=== PATIENT | female | born 1990 | race Hispanic/Latino ===

== ENCOUNTER 2018-11-15 13:46 | Emergency (ER) | payer OTHER ==
[~2018-11-15 13:46] MED LIST: CIPR-278 PO
[2018-11-15 14:30] LABS: BASOPHILS % (AUTO) 0.5 % (0.0-5.0); EOSINOPHILS % (AUTO) 1.3 % (0.0-8.0); HEMATOCRIT 38.3 % (36-48); MEAN CORPUSCULAR HEMOGLOBIN 29.6 pg (27.0-33.0); MEAN CORPUSCULAR HGB CONC 34.1 g/dL (32.0-36.0); MEAN CORPUSCULAR VOLUME 86.8 fL (79-99); NEUTROPHILS % (AUTO) 80.2 % (40.0-77.0); PLATELET COUNT (AUTO) 312 K/uL (130-400); RED BLOOD CELL COUNT(AUTO) 4.41 MIL/uL (4.00-5.50); RED CELL DISTRIBUTION WIDTH 13.4 % (11.0-15.5); WHITE BLOOD COUNT (AUTO) 10.6 K/uL (4.8-10.8)
[2018-11-15 14:31] LABS: APPEARANCE,URINE Cloudy (CLEAR); BILIRUBIN,URINE Negative (NEGATIVE); COLOR,URINE Yellow (YELLOW); GLUCOSE, URINE (UA) Negative (NEGATIVE); KETONES,URINE Negative (NEGATIVE); LEUKOCYTE ESTERASE ,URINE Moderate (NEGATIVE); NITRATE,URINE Positive (NEGATIVE); OCCULT BLOOD,URINE Trace (NEGATIVE); PROTEIN,URINE Negative (NEGATIVE); UROBILINOGEN,URINE 0.2 mg/dL (0.2-1.0)
[2018-11-15 14:34] LABS: HCG,QUAL RESULT NEGATIVE (NEGATIVE)
[2018-11-15] MEDS ORDERED: KETOROLAC TROMETHAMINE 30MG/ML ONE (14:34)
[2018-11-15] MEDS ORDERED: ONDANSETRON HCL 4 MG/2 ML VIAL ONE (14:34)
[2018-11-15] MEDS ORDERED: SODIUM CHLORIDE 0.9% 1000ML 1,000 ML IV ONE (14:35)
[2018-11-15 14:39] LABS: AMPHET/METH SCREEN,URINE NEGATIVE (NEGATIVE); BARBITURATE SCREEN, URINE NEGATIVE (NEGATIVE); BENZODIAZEPINES SCREEN,URINE NEGATIVE (NEGATIVE); CANNABINOID SCREEN,URINE NEGATIVE (NEGATIVE); COCAINE SCREEN,URINE NEGATIVE (NEGATIVE); OPIATE SCREEN,URINE NEGATIVE (NEGATIVE); PHENCYCLIDINE SCREEN,URINE NEGATIVE (NEGATIVE)
[2018-11-15 14:43] LABS: CREATININE 0.9 mg/dL (0.5-1.5); POTASSIUM 3.7 mmol/L (3.5-5.1)
[2018-11-15 14:47] LABS: ALBUMIN 3.8 g/dL (3.5-5.0); BILIRUBIN,DIRECT 0.2 mg/dL (0.0-0.3); BILIRUBIN,TOTAL 0.3 mg/dL (0.2-1.0); TOTAL PROTEIN, SERUM 8.4 g/dL (6.0-8.3)
[2018-11-15 15:01] LABS: BACTERIA,URINE Moderate /HPF (None Seen); MUCUS,URINE Few LPF (None Seen)
== END 2018-11-15 16:03 | disposition home or self-care (01) ==
LOC: EDH 13:46
DX: K29.00 Acute gastritis without bleeding (principal); Z98.51 Tubal ligation status; Z98.890 Other specified postprocedural states
CPT/HCPCS: 36415; 76705; 80048; 80076; 80305; 81001; 81025; 83690; 85025; 96361; 96374; 96375; 99285; J1885; J2405; J7030

== ENCOUNTER 2022-10-14 07:46 | Inpatient (IN) | payer OTHER ==
[2022-10-14] VITALS (27 sets, daily range): BP systolic 102–130; BP diastolic 52–86; PULSE 50–85; RESP 10–20; O2SAT 99
[~2022-10-14] VITALS: Ht 162.6 cm; Wt 99.8 kg
[2022-10-14] MEDS ORDERED: MORPHINE 4 MG SYG IVP ONE (08:00)
[2022-10-14] MEDS ORDERED: ONDANSETRON 4MG INJ IVP ONE (08:00)
[2022-10-14] MEDS ORDERED: 0.9%NACL 1000ML 1,000 ML IV ONE (08:00)
[2022-10-14] MEDS ORDERED: MORPHINE 2 MG SYG ONE (08:30)
[2022-10-14 08:33] LABS: BASOPHILS # (AUTO) 0.04 K/uL (0.00-0.20); BASOPHILS % (AUTO) 0.7 % (0.0-5.0); EOSINOPHILS # (AUTO) 0.11 K/uL (0.00-0.70); HEMATOCRIT 36.4 % (36-48); IMMATURE GRANULOCYTE ABSOLUTE 0.04 K/uL (0-1); LYMPHOCYTES % (AUTO) 18.2 % (21.0-51.0); MEAN CORPUSCULAR HGB CONC 32.1 g/dL (32.0-36.0); MEAN CORPUSCULAR VOLUME 84.1 fL (79-99); MONOCYTES # (AUTO) 0.4 K/uL (0.1-1.0); MONOCYTES % (AUTO) 6.4 % (3.0-13.0); NEUTROPHILS # (AUTO) 3.9 K/uL (1.8-7.7); PLATELET COUNT (AUTO) 356 K/uL (130-400); RED BLOOD CELL COUNT(AUTO) 4.33 MIL/uL (4.00-5.50); RED CELL DISTRIBUTION WIDTH 13.4 % (11.0-15.5); WHITE BLOOD COUNT (AUTO) 5.4 K/uL (4.8-10.8)
[2022-10-14 08:51] LABS: APPEARANCE,URINE CLOUDY (CLEAR); BILIRUBIN,URINE 0.5 mg/dL (NEGATIVE); COLOR,URINE YELLOW (YELLOW); GLUCOSE, URINE (UA) NEGATIVE (NEGATIVE); KETONES,URINE 5 mg/dL (NEGATIVE); LEUKOCYTE ESTERASE ,URINE 75 Leu/uL (NEGATIVE); NITRATE,URINE NEGATIVE (NEGATIVE); OCCULT BLOOD,URINE NEGATIVE (NEGATIVE); PH,URINE 6.5 (5.0-8.0); PROTEIN,URINE NEGATIVE (NEGATIVE); UROBILINOGEN,URINE 3 mg/dL (0.2-1.0)
[2022-10-14 08:52] LABS: ALBUMIN 3.6 g/dL (3.5-5.0); BILIRUBIN,TOTAL 3.4 mg/dL (0.2-1.0); CREATININE 0.9 mg/dL (0.5-1.5); POTASSIUM 3.7 mmol/L (3.5-5.1); TOTAL PROTEIN, SERUM 8.3 g/dL (6.0-8.3)
[2022-10-14 08:53] LABS: ADD UA MICROSCOPIC YES
[2022-10-14 08:59] LABS: BACTERIA,URINE FEW /HPF (None Seen); MUCUS,URINE RARE LPF (None Seen); SQUAMOUS EPITHELIAL CELL,UR FEW /HPF (0-2); TRANSITIONAL EPI CELLS,URINE RARE /HPF (None Seen)
[2022-10-14 09:01] LABS: HCG,QUALITATIVE URINE NEGATIVE (NEGATIVE)
[2022-10-14] MEDS ORDERED: ZOSYN 3.375GM +NS 50ML IVPB ONE (12:00)
[2022-10-14] MEDS ORDERED: IOHEXOL-350 50ML VIAL IV ONE (12:32)
[2022-10-14 12:43] LABS: INR 0.93 (0.85-1.15); PROTHROMBIN TIME 10.6 SEC (9.6-11.6)
[2022-10-14 12:44] LABS: PARTIAL THROMBOPLASTIN TIME 28.5 SEC (26.3-35.5)
[2022-10-14] MEDS ORDERED: INDOMETHACIN 100 MG SUPP.RECT RC ONE (13:00)
[2022-10-14] MEDS ORDERED: CEFTRIAXONE 2GM VIAL IVPB SCH (13:30)
[2022-10-14] MEDS ORDERED: MORPHINE 2 MG SYG IVP PRN (13:30)
[2022-10-14] MEDS ORDERED: ONDANSETRON 4MG INJ IV PRN (13:30)
[2022-10-14] MEDS ORDERED: METRONIDAZOLE 250MG/50ML 50 ML IV SCH (14:00)
[2022-10-14] MEDS ORDERED: MIDAZOLAM HCL 1 MG/ML 2ML VIAL ONE (14:19)
[2022-10-14] MEDS ORDERED: PROPOFOL 10 MG/ML 20ML VIAL IV ONE (14:19)
[2022-10-14] MEDS ORDERED: LIDOCAINE PF 100MG/5ML (2%) SYRINGE 5ML ONE (14:20)
[2022-10-14] MEDS ORDERED: FENTANYL CITRATE PF 50 MCG/1 ML 2ML VIAL ONE (14:20)
[2022-10-14] MEDS ORDERED: SUCCINYLCHOLINE CHLORIDE 20 MG/ML 10 ML VIAL ONE (14:20)
[2022-10-14] MEDS ORDERED: ROCURONIUM BROMIDE 10MG/1ML 5ML VL ONE (14:20)
[2022-10-14] MEDS ORDERED: ONDANSETRON 4MG INJ ONE (14:46)
[2022-10-14] MEDS ORDERED: OMEP40CA21 PO (16:58)
[2022-10-14] MEDS ORDERED: PHEN37.596 PO (16:58)
[2022-10-14] MEDS: 0.9%NACL 1000ML 1,000 ML IV SCH (18:16)
[2022-10-14] MEDS ORDERED: 0.9%NACL 50ML IV SCH (20:00)
[2022-10-14] MEDS: ZOSYN 3.375GM +NS 50ML IVPB SCH (21:06)
[2022-10-14] MEDS: FAMOTIDINE 20MG VIAL IV SCH (21:06)
[2022-10-15] VITALS (27 sets, daily range): BP systolic 98–156; BP diastolic 55–89; PULSE 46–72; RESP 14–20; O2SAT 99–100
[2022-10-15 04:03] LABS: SARS-CoV-2, RNA, NAAT NEGATIVE SARS CoV-2 (NEGATIVE)
[2022-10-15] MEDS: ZOSYN 3.375GM +NS 50ML IVPB SCH ×3 (04:19→20:30)
[2022-10-15 06:17] LABS: HEMATOCRIT 30.8 % (36-48); MEAN CORPUSCULAR HEMOGLOBIN 27.4 pg (27.0-33.0); MEAN CORPUSCULAR HGB CONC 31.5 g/dL (32.0-36.0); RED BLOOD CELL COUNT(AUTO) 3.54 MIL/uL (4.00-5.50); RED CELL DISTRIBUTION WIDTH 13.4 % (11.0-15.5); WHITE BLOOD COUNT (AUTO) 6.9 K/uL (4.8-10.8)
[2022-10-15 06:29] LABS: ALBUMIN 2.8 g/dL (3.5-5.0); BILIRUBIN,DIRECT 0.4 mg/dL (0.0-0.3); BILIRUBIN,TOTAL 0.8 mg/dL (0.2-1.0); POTASSIUM 3.7 mmol/L (3.5-5.1); TOTAL PROTEIN, SERUM 6.6 g/dL (6.0-8.3)
[2022-10-15 06:53] LABS: CREATININE 0.9 mg/dL (0.5-1.5)
[2022-10-15] MEDS: FAMOTIDINE 20MG VIAL IV SCH ×2 (08:56→20:30)
[2022-10-15] MEDS ORDERED: BUPIVACAINE/PF 0.25% 30ML VIAL IJ ONE (10:00)
[2022-10-15] MEDS ORDERED: LIDOCAINE HCL 1% 20 ML VIAL ONE (10:00)
[2022-10-15] MEDS ORDERED: CEFAZOLIN SODIUM 1 GM VIAL ONE (10:00)
[2022-10-15] MEDS ORDERED: MIDAZOLAM HCL 1 MG/ML 2ML VIAL ONE (10:04)
[2022-10-15] MEDS ORDERED: LIDOCAINE PF 100MG/5ML (2%) SYRINGE 5ML ONE (10:04)
[2022-10-15] MEDS ORDERED: PROPOFOL 10 MG/ML 20ML VIAL IV ONE (10:05)
[2022-10-15] MEDS ORDERED: GLYCOPYRROLATE 1 MG/5 ML SYRINGE ONE (10:05)
[2022-10-15] MEDS ORDERED: FENTANYL CITRATE PF 50 MCG/1 ML 2ML VIAL ONE ×3 (10:05→11:45)
[2022-10-15] MEDS ORDERED: ROCURONIUM 10MG/1ML SYR 10 MG/ML ML ONE (10:05)
[2022-10-15] MEDS ORDERED: ONDANSETRON 4MG INJ ONE (10:33)
[2022-10-15] MEDS ORDERED: ESMOLOL HCL 10 MG/ML 10 ML VIAL ONE (10:53)
[2022-10-15] MEDS ORDERED: NEOSTIGMINE 5MG/5ML SYR IV ONE (11:07)
[2022-10-15] MEDS ORDERED: OXYCODONE/ACETAMIN 5/325MG TAB PO PRN (13:00)
[2022-10-15] MEDS: HYDROMORPHONE 1 MG INJ IVP PRN ×2 (16:10→21:48)
[2022-10-16 03:10] VITALS: BP 136/75; PULSE 52; RESP 18
[2022-10-16] MEDS: ZOSYN 3.375GM +NS 50ML IVPB SCH ×2 (04:41→12:00)
[2022-10-16] MEDS: 0.9%NACL 1000ML 1,000 ML IV SCH (04:49)
[2022-10-16 06:13] LABS: BASOPHILS # (AUTO) 0.04 K/uL (0.00-0.20); BASOPHILS % (AUTO) 0.5 % (0.0-5.0); EOSINOPHILS # (AUTO) 0.13 K/uL (0.00-0.70); EOSINOPHILS % (AUTO) 1.6 % (0.0-8.0); HEMATOCRIT 32.5 % (36-48); IMMATURE GRANULOCYTE ABSOLUTE 0.04 K/uL (0-1); LYMPHOCYTES # (AUTO) 1.8 K/uL (1.0-4.8); LYMPHOCYTES % (AUTO) 21.5 % (21.0-51.0); MEAN CORPUSCULAR HEMOGLOBIN 27.3 pg (27.0-33.0); MEAN CORPUSCULAR HGB CONC 31.4 g/dL (32.0-36.0); MEAN CORPUSCULAR VOLUME 87.1 fL (79-99); MONOCYTES # (AUTO) 0.6 K/uL (0.1-1.0); MONOCYTES % (AUTO) 7.1 % (3.0-13.0); NEUTROPHILS # (AUTO) 5.7 K/uL (1.8-7.7); NEUTROPHILS % (AUTO) 68.8 % (40.0-77.0); PLATELET COUNT (AUTO) 286 K/uL (130-400); RED BLOOD CELL COUNT(AUTO) 3.73 MIL/uL (4.00-5.50); RED CELL DISTRIBUTION WIDTH 13.6 % (11.0-15.5); WHITE BLOOD COUNT (AUTO) 8.3 K/uL (4.8-10.8)
[2022-10-16 06:31] LABS: ALBUMIN 2.8 g/dL (3.5-5.0); BILIRUBIN,TOTAL 0.5 mg/dL (0.2-1.0); CREATININE 0.7 mg/dL (0.5-1.5); POTASSIUM 3.9 mmol/L (3.5-5.1)
[2022-10-16 06:55] VITALS: BP 110/62; PULSE 58; RESP 18
[2022-10-16 08:05] VITALS: O2SAT 97
[2022-10-16] MEDS: FAMOTIDINE 20MG VIAL IV SCH (09:15)
[2022-10-16 11:05] VITALS: BP 124/66; PULSE 66; RESP 20
[2022-10-16] MEDS ORDERED: AMOX1TAB16 PO (11:40)
[2022-10-16] MEDS ORDERED: SIMETHICONE 80 MG TAB.CHEW PO PRN (14:00)
[2022-10-16] MEDS ORDERED: DOCUSATE SODIUM 100 MG CAP PO ONE (14:00)
[2022-10-16 15:10] VITALS: BP 117/79; PULSE 74; RESP 20
[2022-10-16] MEDS ORDERED: BISACODYL 10 MG SUPP.RECT RC ONE (18:30)
== END 2022-10-16 19:20 | disposition home or self-care (01) | DRG 418 ==
LOC: EDH 07:46 → EDHIP 13:01 → WSH 16:45
PROVIDERS: ADMIT Hospitalist; ATTEND Hospitalist
PROC: 0FC98ZZ Extirpation of Matter from Common Bile Duct, Via Natural or Artificial Opening Endoscopic (ICD-10-PCS; principal; 2022-10-14)
PROC: BF131ZZ Fluoroscopy of Gallbladder and Bile Ducts using Low Osmolar Contrast (ICD-10-PCS; 2022-10-14)
PROC: 0FT44ZZ Resection of Gallbladder, Percutaneous Endoscopic Approach (ICD-10-PCS; 2022-10-15)
DX: K80.62 Calculus of gallbladder and bile duct with acute cholecystitis without obstruction (principal); N39.0 Urinary tract infection, site not specified; Z20.822 Contact with and (suspected) exposure to COVID-19; D64.9 Anemia, unspecified; Z68.37 Body mass index [BMI] 37.0-37.9, adult; K82.8 Other specified diseases of gallbladder; E66.09 Other obesity due to excess calories; B96.1 Klebsiella pneumoniae [K. pneumoniae] as the cause of diseases classified elsewhere; Z82.49 Family history of ischemic heart disease and other diseases of the circulatory system; Z83.3 Family history of diabetes mellitus
CPT/HCPCS: 36415; 43262; 43264; 74330; 76705; 80048; 80053; 80076; 81001; 81025; 82150; 83690; 85025; 85027; 85610; 85730; 87077; 87088; 87186; 87635; A4606; C1769; C1773; G0378; J0330; J0690; J1170; J2001; J2250; J2270; J2405; J2543; J2704; J2710; J3010; J3490; J7030; Q9967; A4215; A4216; A4222; A4223; A4600